=== PATIENT | male | born 1980 | race Caucasian/White ===

== ENCOUNTER 2019-02-01 15:32 | Emergency (ER) | payer MEDICARE, MEDICAID ==
[2019-02-01 15:38] VITALS: RESP 16; O2SAT 98
[2019-02-01 15:40] VITALS: BMI 27.7
--- NOTE | 2019-02-01 15:45 | ED PDOC ---
HPI: Eye Injury/Pain Time Seen by Provider: 02/01/19 15:40 Chief Complaint (Nursing): Eye Problem Chief Complaint (Provider): eye problem History Per: Patient History/Exam Limitations: no limitations Onset/Duration Of Symptoms: Days (1x) Current Symptoms Are (Timing): Still Present Injury To Eye?: No Severity: Moderate Wears Contact Lens?: Yes Additional Complaint(s): 38 year old male with no pertinent past medical history presents to the ED for an evaluation of right eye redness ongoing for 1x day. Patient states that this morning he woke up and his red eye was very red and hard to open. Patient denies having trauma, pain, fevers, or chills. Patient reports using contact lenses. PMD: Aric Galan MD Past Medical History Reviewed: Historical Data, Nursing Documentation, Vital Signs Vital Signs: Last Vital Signs Temp 98 F 02/01/19 15:37 Pulse 97 H 02/01/19 15:37 Resp 16 02/01/19 15:37 BP 101/68 02/01/19 15:37 Pulse Ox 98 02/01/19 15:37 CAROLYN Report Viewed: Yes - Medical History PMH: Bipolar Disorder - Surgical History Surgical History: Hernia Repair - Family History Family History: States: No Known Family Hx - Home Medications Home Medications: Ambulatory Orders Medication Instructions Recorded Amoxicillin 875 mg PO BID #20 tab 09/22/15 Prednisone 20 mg PO BID #10 tab 09/22/15 Ofloxacin Ophth 0.3% [Ocuflox 1 - 2 drop RIGHTEYE Q4H #1 bottle 02/01/19 Ophth 0.3%] - Allergies Allergies/Adverse Reactions: Allergies Allergy/AdvReac Type Severity Reaction Status Date / Time tetracycline Allergy ANAPHYLAXIS Verified 09/22/15 15:56 Review of Systems ROS Statement: Except As Marked, All Systems Reviewed And Found Negative Constitutional: Negative for: Fever, Chills Eyes: Positive for: Redness (right eye redness, difficult to open). Negative for: Pain Physical Exam - Reviewed Nursing Documentation Reviewed: Yes Vital Signs Reviewed: Yes - Physical Exam Appears: Positive for: Well, Non-toxic, No Acute Distress Head Exam: Positive for: ATRAUMATIC, NORMOCEPHALIC Skin: Positive for: Normal Color, Warm, Dry Eye Exam: Positive for: EOMI (without pain), PERRL, Conjunctival injection (right eye with moderate conjunctival injection). Negative for: Periorbital swelling, Periorbital tenderness Neurological/Psych: Positive for: Awake, Alert, Oriented (3x) - ECG O2 Sat by Pulse Oximetry: 98 (RA) Pulse Ox Interpretation: Normal Medical Decision Making Medical Decision Makin:40 Initial impression: 38 year old male with conjunctivitis Patient advised not to use contact lenses until cleared by PMD. ScribeAttestation: Documented byLiz Drummond, acting as a scribe for Dimitris Cespedes PA-C. Provider ScribeAttestation: All medical record entries made by the Scribe were at my direction and personally dictated by me. I have reviewed the chart and agree that the record accurately reflects my personal performance of the history, physical exam, medical decision making, and the department course for this patient. I have also personally directed, reviewed, and agree with the discharge instructions and disposition. Disposition - Clinical Impression Clinical Impression: Conjunctivitis - Patient ED Disposition Is Patient to be Admitted: No - Disposition Referrals: [facility] [Outside] Disposition: Routine/Home Disposition Time: 15:44 Condition: STABLE Additional Instructions: FOLLOW UP WITH YOUR DOCTOR FOR FURTHER EVALUATION RETURN TO ED IMMEDIATELY IF SYMPTOMS WORSEN Prescriptions: Ofloxacin Ophth 0.3% [Ocuflox Ophth 0.3%] 1 - 2 drop RIGHTEYE Q4H #1 bottle Instructions: Conjunctivitis ([place]) (DC), How to Use Eye Drops Forms: [employer] (Malagasy)
[2019-02-01 16:38] VITALS: BP 108/76; PULSE 90; TEMP 98.1
== END 2019-02-01 15:50 | disposition home or self-care (01) ==
LOC: H.ER 15:32
DX: H10.9 Unspecified conjunctivitis (principal)